=== PATIENT | female | born 1990 | race Caucasian/White ===

== ENCOUNTER 2016-12-13 05:36 | Emergency (ER) | payer OTHER ==
[~2016-12-13] VITALS: Ht 152.4 cm; Wt 48.6 kg
[~2016-12-13 05:36] MED LIST: ELMCR TOP
[2016-12-13 05:39] VITALS: TEMP 36.8; Ht 152.4 cm; Wt 48.6 kg
[2016-12-13] MEDS ORDERED: SODIUM CHLORIDE 0.9% 1000ML 500 ML IV STA (06:29)
[2016-12-13] MEDS ORDERED: LORAZEPAM 2 MG/ML 1 ML VIAL IV STA (06:29)
[2016-12-13] MEDS ORDERED: ONDANSETRON INJ 2 MG/ML 2 ML VIAL IV STA (06:29)
[2016-12-13] MEDS ORDERED: SODIUM CHLORIDE 0.9% 1000ML 1,000 ML IV STA (06:29)
[2016-12-13] MEDS ORDERED: [UNRECOGNIZED DRUG - CODE] PO (06:33)
[2016-12-13 06:34] VITALS: O2SAT 94
[2016-12-13 06:39] LABS: HEMATOCRIT 40.5 % (37-47); MEAN CELL VOLUME 86.5 fL (80-100); MEAN CORPUSCULAR HEMOGLOBIN 29.5 pg (25-34); MEAN CORPUSCULAR HGB CONC 34.1 g/dl (32-36); MEAN PLATELET VOLUME 9.9 fL (7.4-10.4); PLATELET COUNT 333 K/uL (130-400); RED BLOOD COUNT 4.68 M/uL (4.2-5.4); WHITE BLOOD COUNT 7.96 K/uL (4.8-10.8)
[2016-12-13] MEDS ORDERED: KETOROLAC TROMETHAMINE 30 MG/ML VIAL IV STA (06:39)
--- NOTE | 2016-12-13 06:46 | EMERGENCY ROOM VISIT NOTE ---
History Report prepared by Adalid: Haven Juarez Under the Supervision of: Dr. Juanjo Dallas M.D. First contact with patient: 06:28 Chief Complaint: CHEST PAIN Stated Complaint: PAIN IN ARM,CHEST PAIN,SOB,ARM NUMBNESS Nursing Triage Summary: pt c/o chest pain radiating to back and left arm that began around 4:15am. pt reports she took plan b yesterday around 6pm and began to have leg numbness around midnight. pt states "I just went home and ignored it." pain reproducable on chest. pt reporst hx heart murmor. pt alert and oriented x4. pt breathing WNL. pt tearful. History of Present Illness The patient is a 26 year old female who presents to the Emergency Room with complaints of persistent left chest pain that began around 0030 this morning. She currently rates her discomfort as a 9/10 in severity. The patient reports that yesterday she took plan B around 1800. She states that last evening she was at work when she first began noticing leg numbness. The patient states that she then went home and became nauseous and vomited after she ate [employer]. She states that she then developed a sharp left arm pain and notes that it then went numb. The patient states that the pain radiated into her left chest and left back. She denies the pain worsening with movement or deep breathing. The patient denies taking control. She denies any personal or family history of PEs or DVTs. The patient denies any recent fall or trauma. She denies feeling sick the past few days. The patient reports a history of a heart arrhythmia. She denies taking any daily medications. The patient states that she smokes 1 pack of cigarettes per day. She states that she uses marijuana and drinks occasionally. Source of History: patient, family Onset: 29 this morning Position: chest (left) Symptom Intensity: 9/10 Timing: other (persistent) Associated Symptoms: + nausea, + vomiting, + back pain, + numbness (leg left arm) Review of Systems See HPI for pertinent positives & negatives. A total of 10 systems reviewed and were otherwise negative. Past Medical & Surgical Medical Problems: (1) Bronchitis (2) Pneumonia Family History Cancer Diabetes mellitus FH: heart disease Hypertension Kidney disease Kidney stones Social History Smoking Status: Current Every Day Smoker Alcohol Use: occasionally Drug Use: marijuana Marital Status: single Housing Status: lives alone Occupation Status: employed Current/Historical Medications Scheduled PRN Levonorgestrel (Emergency Oc) (Plan B One-Step), 1 DOSE PO DIRECTED PRN for PRN Allergies Coded Allergies: No Known Allergies (Unverified , 12/13/16) Physical Exam Vital Signs Date Time Temp Pulse Resp B/P (MAP) Pulse Ox O2 Delivery O2 Flow Rate FiO2 12/13/16 07:44 76 18 99/61 97 Room Air 12/13/16 06:44 93 18 113/57 96 Room Air 12/13/16 06:34 94 Room Air 12/13/16 06:12 Room Air 12/13/16 06:04 85 12/13/16 05:39 36.8 88 20 146/81 96 Room Air Physical Exam GENERAL: Patient is in no acute distress. HEENT: No acute trauma, normocephalic atraumatic, mucous membranes moist, no nasal congestion, no scleral icterus. NECK: No stridor, no adenopathy, no meningismus, trachea is midline. LUNGS: Clear to auscultation bilaterally, no wheeze, no rhonchi, breath sounds equal. CHEST: Tender over the mid-left sternal chest wall, no contusion, no crepitus. HEART: Without murmurs gallops or rubs, regular rate and rhythm. ABDOMEN: Soft, nontender, bowel sounds positive, no hernias, no peritonitis. EXTREMITIES: No cyanosis or edema, full range of motion of all the joints without pain or difficulty, no signs for acute trauma. NEUROLOGIC: Oriented x 3, no acute motor or sensory deficits, no focal weakness. SKIN: No rash, no jaundice, no diaphoresis. Medical Decision & Procedures ER Provider Diagnostic Interpretation: Radiology results as stated below per my review and radiologist interpretation: CHEST ONE VIEW PORTABLE CLINICAL HISTORY: 26 years-old Female presenting with CHEST PAIN. TECHNIQUE: Portable upright AP view of the chest was obtained. COMPARISON: None. FINDINGS: Cardiomediastinal silhouette normal. Lungs and pleural spaces clear. Osseous structures normal. Upper abdomen normal. IMPRESSION: 1. No acute cardiopulmonary disease. Electronically signed by: Mathieu Braxton M.D. 12/13/2016 6:50 AM Dictated Date/Time: 12/13/2016 6:49 AM Laboratory Results 12/13/16 06:05 12/13/16 06:05 Test 12/13/16 06:00 12/13/16 06:05 12/13/16 06:38 Urine Test NEG (NEG) Red Blood Count 4.68 M/uL (4.2-5.4) Mean Corpuscular Volume 86.5 fL (80-100) Mean Corpuscular Hemoglobin 29.5 pg (25-34) Mean Corpuscular Hemoglobin Concent 34.1 g/dl (32-36) RDW Standard Deviation 40.2 fL (36.4-46.3) RDW Coefficient of Variation 12.6 % (11.5-14.5) Mean Platelet Volume 9.9 fL (7.4-10.4) Anion Gap 7.0 mmol/L (3-11) Est Creatinine Clear Calc Drug Dose 77.9 ml/min Estimated GFR () 119.6 Estimated GFR (Non- 103.2 BUN/Creatinine Ratio 19.6 (10-20) Calcium Level 10.0 mg/dl (8.5-10.1) Total Bilirubin 0.4 mg/dl (0.2-1) Aspartate Amino Transf (AST/SGOT) 21 U/L (15-37) Alanine Aminotransferase (ALT/SGPT) 20 U/L (12-78) Alkaline Phosphatase 47 U/L (45-117) Total Protein 8.2 gm/dl (6.4-8.2) Albumin 4.3 gm/dl (3.4-5.0) Globulin 3.9 gm/dl (2.5-4.0) Albumin/Globulin Ratio 1.1 (0.9-2) Bedside Troponin I < 0.030 ng/ml (0-0.045) Laboratory results reviewed by me. Medications Administered Medications (Trade) Dose Ordered Sig/Aline Route Start Time Stop Time Status Last Admin Dose Admin Sodium Chloride 500 ml @ 999 mls/hr Q31M STAT IV 12/13/16 06:29 12/13/16 06:59 DC 12/13/16 06:44 999 MLS/HR Sodium Chloride 1,000 ml @ 200 mls/hr Q5H STAT IV 12/13/16 06:29 12/13/16 08:41 DC 12/13/16 07:08 200 MLS/HR Lorazepam (Ativan Inj) 0.5 mg NOW STAT IV 12/13/16 06:29 12/13/16 06:33 DC 12/13/16 06:44 0.5 MG Ondansetron HCl (Zofran Inj) 4 mg NOW STAT IV 12/13/16 06:29 12/13/16 06:33 DC 12/13/16 06:41 4 MG Ketorolac Tromethamine (Toradol Inj) 15 mg NOW STAT IV 12/13/16 06:39 12/13/16 06:40 DC 12/13/16 06:46 15 MG ECG Indication: chest pain Rate (beats per minute): 82 Rhythm: normal sinus (with sinus arrhythmia) Findings: no acute ischemic change, no ectopy ED Course 0629: Ordered Zofran Inj 4 mg IV, Ativan Inj 0.5 mg IV, Sodium Chloride 1000 ml @ 200 mls/hr IV, Sodium Chloride 500 ml @ 999 mls/hr IV. 0634: The patient was evaluated in room B2. A complete history and physical exam was performed. 0639: Ordered Toradol Inj 15 mg IV. 0738: I reevaluated the patient and she is feeling much better. I discussed the exam findings with her and I discussed the treatment plan. She verbalized complete understanding and agreement. She is ready to go home. Medical Decision The patient is a 26 year old female who presents to the ED with complaints of left chest pain. Differential diagnoses considered include musculoskeletal chest pain, pneumothorax, pneumonia, PE, arrhythmia, dysrhythmia, anxiety, cardiomegaly.. There is no leukocytosis or concerning anemia. No significant electrolyte abnormality, kidney failure or hepatitis. EKG shows a sinus rhythm with some sinus arrhythmia, no acute ischemia. Cardiac enzyme testing times one is not consistent with acute cardiac injury. Chest film does not show pneumonia, mediastinal widening or pneumothorax. Urine dip was negative. Urine was negative. On exam, the patient did have some reproducible left-sided chest pain. The patient received IV saline, IV Toradol, IV Zofran and IV Ativan, she feels markedly better. I do think her pain is musculoskeletal. There may be a component of anxiety here as well. The patient is being discharged with over- the-counter Motrin/Advil for inflammation and pain, heat was suggested. If worsening, she can return. Medication Reconcilliation Current Medication List: was personally reviewed by me Impression Primary Impression: Left sided chest pain Scribe Attestation The scribe's documentation has been prepared under my direction and personally reviewed by me in its entirety. I confirm that the note above accurately reflects all work, treatment, procedures, and medical decision making performed by me. Departure Information Dispostion Home / Self-Care Referrals No Doctor, Assigned (PCP) Forms HOME CARE DOCUMENTATION FORM, IMPORTANT VISIT INFORMATION Patient Instructions My [facility] Additional Instructions motrin 400 mg 3x per day for 4 days heat to the sore chest should help no heavy lifting return if worsening all testing today was ok
--- NOTE | 2016-12-13 06:51 | DIAGNOSTIC IMAGING REPORT ---
CHEST ONE VIEW PORTABLE CLINICAL HISTORY: 26 years-old Female presenting with CHEST PAIN. TECHNIQUE: Portable upright AP view of the chest was obtained. COMPARISON: None. FINDINGS: Cardiomediastinal silhouette normal. Lungs and pleural spaces clear. Osseous structures normal. Upper abdomen normal. IMPRESSION: 1. No acute cardiopulmonary disease. Electronically signed by: Mathieu Braxton M.D. 12/13/2016 6:50 AM Dictated Date/Time: 12/13/2016 6:49 AM
[2016-12-13 07:16] LABS: BUN/CREATININE RATIO 19.6 (10-20); CREATININE 0.8 mg/dl (0.60-1.20); POTASSIUM 3.1 mmol/L (3.5-5.1)
[2016-12-13 07:19] LABS: ALB/GLOB RATIO 1.1 (0.9-2)
[2016-12-13 07:44] VITALS: BP 99/61; PULSE 76; O2SAT 97
== END 2016-12-13 07:55 | disposition home or self-care (01) ==
LOC: C.EDB 05:39
DX: R07.9 Chest pain, unspecified (principal); Z87.01 Personal history of pneumonia (recurrent); F17.210 Nicotine dependence, cigarettes, uncomplicated; Z80.9 Family history of malignant neoplasm, unspecified; Z83.3 Family history of diabetes mellitus; Z82.49 Family history of ischemic heart disease and other diseases of the circulatory system; Z84.1 Family history of disorders of kidney and ureter

== ENCOUNTER 2017-07-24 19:24 | Emergency (ER) | payer OTHER ==
[~2017-07-24] VITALS: Ht 152.4 cm; Wt 48.2 kg
[~2017-07-24 19:24] MED LIST changes: -ELMCR TOP; +[UNRECOGNIZED DRUG - CODE] PO
[2017-07-24 19:26] VITALS: Ht 152.4 cm; Wt 48.2 kg
[2017-07-24] MEDS ORDERED: SODIUM CHLORIDE 0.9% 1000ML 1,000 ML IV STA (19:53)
--- NOTE | 2017-07-24 20:17 | DIAGNOSTIC IMAGING REPORT ---
CHEST ONE VIEW PORTABLE HISTORY: syncope COMPARISON: Chest 12/13/2016. FINDINGS: The lungs are clear. Cardiac silhouette is normal in size. No pleural effusions. No pneumothorax. IMPRESSION: No acute process. Electronically signed by: Shon Sheppard M.D. 07/24/2017 8:16 PM Dictated Date/Time: 07/24/2017 8:15 PM
[2017-07-24 20:21] LABS: BASO % 0.6 %; BASO ABS # 0.03 K/uL (0-0.2); EOS ABS # 0.05 K/uL (0-0.5); HEMATOCRIT 41.2 % (37-47); HEMOGLOBIN 14.4 g/dL (12.0-16.0); IG# 0.01 K/uL (0.00-0.02); LYMPH % 28.9 %; MEAN CELL VOLUME 85.3 fL (80-100); MEAN CORPUSCULAR HEMOGLOBIN 29.8 pg (25-34); MEAN PLATELET VOLUME 9.7 fL (7.4-10.4); MONO % 8.9 %; MONO ABS # 0.46 K/uL (0.11-0.59); NEUT % 60.4 %; NEUT ABS # 3.14 K/uL (1.4-6.5); PLATELET COUNT 308 K/uL (130-400); RED CELL DISTRIBUTION WIDTH CV 12.1 % (11.5-14.5); RED CELL DISTRIBUTION WIDTH SD 37.5 fL (36.4-46.3); WHITE BLOOD COUNT 5.19 K/uL (4.8-10.8)
--- NOTE | 2017-07-24 20:31 | DIAGNOSTIC IMAGING REPORT ---
HEAD CT NONCONTRAST CT DOSE: 537.48 mGy.cm HISTORY: syncope, headaches TECHNIQUE: Multiaxial CT images of the head were performed without the use of intravenous contrast. Automated exposure control was utilized for this study. A dose lowering technique was utilized adhering to the principles of ALARA. Comparison: None. Findings: The paranasal sinuses and mastoid air cells are clear. The calvarium and skull base are intact. The ventricles and sulci are within normal limits. There is no mass, hematoma, midline shift, or acute infarct. Impression: No acute intracranial abnormality. Electronically signed by: Shon Sheppard M.D. 07/24/2017 8:30 PM Dictated Date/Time: 07/24/2017 8:26 PM
[2017-07-24 20:43] LABS: ALBUMIN 4.6 gm/dl (3.4-5.0); ALKALINE PHOSPHATASE 40 U/L (45-117); ALT/SGPT 22 U/L (12-78); AST/SGOT 22 U/L (15-37); BLOOD UREA NITROGEN 11 mg/dl (7-18); CALCIUM 9.1 mg/dl (8.5-10.1); CARBON DIOXIDE 27 mmol/L (21-32); CREATININE 0.73 mg/dl (0.60-1.20); GLUCOSE 94 mg/dl (70-99); PHOSPHORUS 2.8 mg/dl (2.5-4.9); POTASSIUM 3.5 mmol/L (3.5-5.1); SODIUM 137 mmol/L (136-145); TOTAL PROTEIN 8.2 gm/dl (6.4-8.2)
--- NOTE | 2017-07-24 21:23 | EMERGENCY ROOM VISIT NOTE ---
History Report prepared by Adalid: Hortencia Graves Under the Supervision of: Dr. Suzanne Porter D.O. First contact with patient: 19:30 Chief Complaint: DIZZY Stated Complaint: LIGHT HEADED, PASSING OUT, LEFT BREAST HURTS/LUMP Nursing Triage Summary: dizzy and shaky History of Present Illness The patient is a 27 year old female who presents to the Emergency Room with 2 episodes of syncope earlier today. She spoke with her doctor and was referred to the ED. The patient has had nearly no appetite for the past week. She has eaten very little. When she attempts to eat, she feels nauseous and has vomited. She was feeling lightheaded, dizzy, shaky, and nauseous today. She was standing in the kitchen when she started to black out. She woke up on the floor. She was not confused upon waking up. She passed out another time afterwards. She has a history of migraines and has been having headaches that are worse than usual. She has been having some PTSD flashbacks. She has noticed a lump in her left breast for 3 years which has become tender now. She has some pain in her chest intermittently. She denies any diarrhea, change in bowel movement, urinary symptoms, fever, chills, palpitations, blurry vision, numbness , or tingling. She denies any chance of . Source of History: patient Onset: earlier today Position: head Quality: other (syncope) Timing: other (2 episodes) Associated Symptoms: + headache, + chest pain, + nausea, + vomiting, No fevers, No chills, No diarrhea, No urinary symptoms, No numbness Note: Pt reports decreased appetite, lightheadedness, shakiness. Review of Systems See HPI for pertinent positives & negatives. A total of 10 systems reviewed and were otherwise negative. Past Medical & Surgical Medical Problems: (1) Bronchitis (2) Pneumonia Family History Cancer Diabetes mellitus FH: heart disease Hypertension Kidney disease Kidney stones Social History Smoking Status: Current Every Day Smoker Alcohol Use: occasionally Drug Use: marijuana Marital Status: single Housing Status: lives alone Occupation Status: employed Current/Historical Medications Scheduled Ondasetron Odt (Zofran Odt), 4 MG SL Q8 Allergies Coded Allergies: No Known Allergies (Unverified , 07/24/17) Physical Exam Vital Signs Date Time Temp Pulse Resp B/P (MAP) Pulse Ox O2 Delivery O2 Flow Rate FiO2 07/24/17 22:33 36.7 61 20 120/72 95 07/24/17 21:43 61 20 120/72 95 Room Air 07/24/17 20:10 36.7 07/24/17 19:26 36.8 94 18 145/95 100 Room Air Physical Exam GENERAL: anxious, tearful, alert, well nourished, no distress, non-toxic EYE EXAM: normal conjunctiva, PERRL and EOM's grossly intact OROPHARYNX: no exudate, no erythema, lips, buccal mucosa, and tongue normal and mucous membranes are moist NECK: supple, no nuchal rigidity, no adenopathy, non-tender CHEST: Small palpable firmness just behind the piercing at the left nipple, no dimpling, no discharge from nipple, no erythema or evidence of infection. LUNGS: Clear to auscultation. Normal chest wall mechanics HEART: no murmurs, S1 normal and S2 normal ABDOMEN: abdomen soft, non-tender, normo-active bowel sounds, no masses, no rebound or guarding. BACK: Back is symmetrical on inspection and there is no deformity, no midline tenderness, no CVA tenderness. SKIN: no rashes and no bruising UPPER EXTREMITIES: upper extremities are grossly normal. LOWER EXTREMITIES: No pitting edema. NEURO EXAM: Normal sensorium, cranial nerves II-XII grossly intact, normal speech, no gross weakness of arms, no gross weakness of legs. Medical Decision & Procedures ER Provider Diagnostic Interpretation: Radiology results have been interpreted by the radiologist and reviewed by me. CHEST ONE VIEW PORTABLE HISTORY: syncope COMPARISON: Chest 12/13/2016. FINDINGS: The lungs are clear. Cardiac silhouette is normal in size. No pleural effusions. No pneumothorax. IMPRESSION: No acute process. Electronically signed by: Shon Sheppard M.D. 07/24/2017 8:16 PM Dictated Date/Time: 07/24/2017 8:[address] DOSE: 537.48 mGy.cm HISTORY: syncope, headaches TECHNIQUE: Multiaxial CT images of the head were performed without the use of intravenous contrast. Automated exposure control was utilized for this study. A dose lowering technique was utilized adhering to the principles of ALARA. Comparison: None. Findings: The paranasal sinuses and mastoid air cells are clear. The calvarium and skull base are intact. The ventricles and sulci are within normal limits. There is no mass, hematoma, midline shift, or acute infarct. Impression: No acute intracranial abnormality. Electronically signed by: Shon Sheppard M.D. 07/24/2017 8:30 PM Dictated Date/Time: 07/24/2017 8:26 PM Laboratory Results 07/24/17 20:05 Red Blood Count 4.83, Mean Corpuscular Volume 85.3, Mean Corpuscular Hemoglobin 29.8, Mean Corpuscular Hemoglobin Concent 35.0, Mean Platelet Volume 9.7, Neutrophils (%) (Auto) 60.4, Lymphocytes (%) (Auto) 28.9, Monocytes (%) (Auto) 8.9, Eosinophils (%) (Auto) 1.0, Basophils (%) (Auto) 0.6, Neutrophils # (Auto) 3.14, Lymphocytes # (Auto) 1.50, Monocytes # (Auto) 0.46, Eosinophils # (Auto) 0.05, Basophils # (Auto) 0.03 07/24/17 20:05 Test 07/24/17 19:00 07/24/17 20:05 Urine Color YELLOW Urine Appearance CLEAR (CLEAR) Urine pH 7.5 (4.5-7.5) Urine Specific [place] 1.021 (1.000-1.030) Urine Protein NEG (NEG) Urine Glucose (UA) NEG (NEG) Urine Ketones NEG (NEG) Urine Occult Blood NEG (NEG) Urine Nitrite NEG (NEG) Urine Bilirubin NEG (NEG) Urine Urobilinogen NEG (NEG) Urine Leukocyte Esterase NEG (NEG) Urine Opiates Screen NEG (NEG) Urine Methadone, Qualitative NEG (NEG) Urine Barbiturates NEG (NEG) Urine Phencyclidine (PCP) Level NEG (NEG) Ur Amphetamine/Methamphetamine NEG (NEG) MDMA (Ecstasy) Screen NEG (NEG) Urine Benzodiazepines Screen NEG (NEG) Urine Cocaine Metabolite NEG (NEG) Urine Marijuana (THC) NEG (NEG) White Blood Count 5.19 K/uL (4.8-10.8) Red Blood Count 4.83 M/uL (4.2-5.4) Hemoglobin 14.4 g/dL (12.0-16.0) Hematocrit 41.2 % (37-47) Mean Corpuscular Volume 85.3 fL (80-100) Mean Corpuscular Hemoglobin 29.8 pg (25-34) Mean Corpuscular Hemoglobin Concent 35.0 g/dl (32-36) Platelet Count 308 K/uL (130-400) Mean Platelet Volume 9.7 fL (7.4-10.4) Neutrophils (%) (Auto) 60.4 % Lymphocytes (%) (Auto) 28.9 % Monocytes (%) (Auto) 8.9 % Eosinophils (%) (Auto) 1.0 % Basophils (%) (Auto) 0.6 % Neutrophils # (Auto) 3.14 K/uL (1.4-6.5) Lymphocytes # (Auto) 1.50 K/uL (1.2-3.4) Monocytes # (Auto) 0.46 K/uL (0.11-0.59) Eosinophils # (Auto) 0.05 K/uL (0-0.5) Basophils # (Auto) 0.03 K/uL (0-0.2) RDW Standard Deviation 37.5 fL (36.4-46.3) RDW Coefficient of Variation 12.1 % (11.5-14.5) Immature Granulocyte % (Auto) 0.2 % Immature Granulocyte # (Auto) 0.01 K/uL (0.00-0.02) Anion Gap 6.0 mmol/L (3-11) Est Creatinine Clear Calc Drug Dose 84.6 ml/min Estimated GFR () 132.7 Estimated GFR (Non- 114.5 BUN/Creatinine Ratio 15.6 (10-20) Calcium Level 9.1 mg/dl (8.5-10.1) Phosphorus Level 2.8 mg/dl (2.5-4.9) Magnesium Level 2.1 mg/dl (1.8-2.4) Total Bilirubin 0.4 mg/dl (0.2-1) Aspartate Amino Transf (AST/SGOT) 22 U/L (15-37) Alanine Aminotransferase (ALT/SGPT) 22 U/L (12-78) Alkaline Phosphatase 40 U/L (45-117) Troponin I < 0.015 ng/ml (0-0.045) Total Protein 8.2 gm/dl (6.4-8.2) Albumin 4.6 gm/dl (3.4-5.0) Globulin 3.6 gm/dl (2.5-4.0) Albumin/Globulin Ratio 1.3 (0.9-2) Thyroid Stimulating Hormone (TSH) 0.648 uIu/ml (0.300-4.500) Human Chorionic Gonadotropin, Qual NEG (NEG) Laboratory results per my review. Medications Administered Medications (Trade) Dose Ordered Sig/Aline Route Start Time Stop Time Status Last Admin Dose Admin Sodium Chloride 1,000 ml @ 999 mls/hr Q1H1M STAT IV 07/24/17 19:53 07/24/17 20:53 DC 07/24/17 19:53 999 MLS/HR Ondansetron HCl (Zofran Inj) 4 mg NOW STAT IV 07/24/17 21:36 07/24/17 21:37 DC 07/24/17 21:42 4 MG Ondansetron HCl (ZOFRAN ODT 4MG Home Pack) 1 homepack UD ONCE PO 07/24/17 22:15 07/24/17 22:16 DC 07/24/17 22:28 1 HOMEPACK ECG Per My Interpretation Indication: syncope Rate (beats per minute): 88 Rhythm: sinus rhythm Findings: no acute ischemic change, no ectopy, other (normal axis, normal intervals, no evidence of Brugada) ED Course 1945: The patient was evaluated in room C10. A complete history and physical exam was performed. 1952: Sodium Chloride 1000 ml @ 999 mls/hr IV. 2114: I reevaluated the patient. I updated her on the results. She will be PO challenged. 2134: The patient was nauseous with PO challenge. Discussed diet and hydration with the patient. She states she does drink a lot of coffee because she works night shifts, and frequently eats foods that have tomato sauce on them. Discussed with her possible component of GERD/gastritis to her nausea and decreased appetite recently. Patient denies any prior diagnosis of discharge, denies any blood in the vomit earlier. 2135: Zofran Inj 4 mg IV. 2205: Upon reevaluation, the patient is feeling better. I discussed the findings and the treatment plan with the patient. She verbalizes agreement and understanding. She was discharged home. 2214: Zofran Odt 4 mg 1 homepack PO. Medical Decision Differential diagnosis includes etiologies such as vasovagal event, infection, hypoglycemia, electrolyte abnormalities, cardiac sources, intracerebral event, toxicologic, neurologic, as well as others were entertained. Heart score 0 Perc negative Low risk based on [place] syncope rules Patient well-appearing here throughout. Patient did feel improved following nausea was able to tolerate p.o. without any recurrent vomiting. Patient not orthostatic. Patient hemodynamically stable throughout. I do not suspect ACS, no evidence of dysrhythmia on telemetry patient with no family history of sudden cardiac . I do not suspect PE, CVA, cerebellar infarct or bleed, or occult infectious etiology. Patient's labs and imaging reassuring. Patient anxious to leave. Discussed with her diet and hydration and possible component of GERD/gastritis contributing to her poor p.o. intake which subsequently led to her syncopal events today. Discussed with her close follow-up with [facility] and possible need for additional imaging regarding the lump in her left breast. Discussed follow-up with her family doctor regarding a recheck of her appetite and follow-up regarding the syncope today. Discussed with her symptoms to watch and return for, she verbalized understanding was agreeable with plan. At time of discharge patient well-appearing, ambulate with a steady gait, had no recurrent symptoms and felt improved. Medication Reconcilliation Current Medication List: was personally reviewed by me Blood Pressure Screening Patient's blood pressure: Normal blood pressure Blood pressure disposition: Did not require urgent referral Impression Primary Impression: Dizziness Additional Impressions: Syncope Poor appetite GERD (gastroesophageal reflux disease) Scribe Attestation The scribe's documentation has been prepared under my direction and personally reviewed by me in its entirety. I confirm that the note above accurately reflects all work, treatment, procedures, and medical decision making performed by me. Departure Information Dispostion Home / Self-Care Prescriptions Ondasetron Odt (ZOFRAN ODT) 4 Mg Tab 4 MG SL Q8 for Nausea, #15 TAB Prov: Suzanne Porter, 07/24/17 Referrals Jeancarlos Temple PA-C (PCP) Patient Instructions My [facility] Additional Instructions Please try to drink clear liquids at frequent intervals to stay well-hydrated and eat small but frequent meals. Please follow-up with your family doctor as a precaution. If you have any recurrent episodes of blacking out or passing out , have worsening dizziness or lightheadedness, develop chest pain, palpitations , trouble breathing, headaches, vision changes, or unable to walk, you have any other new concerns, please return the emergency room. Please have your family doctor [facility] refer you for mammogram given the ongoing breast tenderness you have had. Please avoid acidic food/drink in your diet including alcohol, coffee , soda, tomato based products, citrus fruits. Please consider starting an over the counter stomach medication to reduce acid such as prilosec, pepcid, or prevacid. Problem Qualifiers Additional Impressions: Syncope Syncope type: unspecified Qualified Codes: R55 - Syncope and collapse GERD (gastroesophageal reflux disease) Esophagitis presence: esophagitis presence not specified Qualified Codes: K21.9 - Gastro-esophageal reflux disease without esophagitis
[2017-07-24] MEDS ORDERED: ONDANSETRON INJ 2 MG/ML 2 ML VIAL IV STA (21:36)
[2017-07-24] MEDS ORDERED: ONDANSETRON HOME PACK 4MG OD TAB PO ONE (22:15)
[2017-07-24] MEDS ORDERED: ONDA4TAB10 SL (22:23)
[2017-07-24 22:33] VITALS: BP 120/72; PULSE 61; TEMP 36.7; O2SAT 95
== END 2017-07-24 22:33 | disposition home or self-care (01) ==
LOC: C.EDB 19:25 → C.EDC 22:33
DX: R55 Syncope and collapse (principal); R42 Dizziness and giddiness; K21.9 Gastro-esophageal reflux disease without esophagitis; R63.8 Other symptoms and signs concerning food and fluid intake; F43.10 Post-traumatic stress disorder, unspecified; Z87.01 Personal history of pneumonia (recurrent); F17.210 Nicotine dependence, cigarettes, uncomplicated; F12.90 Cannabis use, unspecified, uncomplicated; Z80.9 Family history of malignant neoplasm, unspecified; Z83.3 Family history of diabetes mellitus; Z82.49 Family history of ischemic heart disease and other diseases of the circulatory system; Z84.1 Family history of disorders of kidney and ureter